=== PATIENT | male | born 1955 | race Caucasian/White ===

== ENCOUNTER 2019-04-23 06:15 | Day surgery (SDC) | payer MEDICARE ==
[2019-04-23] MEDS ORDERED: Acetaminophen/Codeine 300-30 MG Tab PO ONE ×2 (07:08→10:48)
[2019-04-23] MEDS ORDERED: diphenhydrAMINE 25 MG Cap PO ONE (07:08)
[2019-04-23] MEDS ORDERED: Hydrocortisone 1% Crm 30 GM Tube TOP ONE (07:10)
--- NOTE | 2019-04-23 07:26 | EDM.PDOC ---
ED HPI GENERAL MEDICAL PROBLEM - General Chief Complaint: IV Access Related Stated Complaint: MED[facility] Time Seen by Provider: 04/23/19 07:00 Source of Information: Reports: Patient, RN Notes Reviewed History Limitations: Reports: No Limitations - History of Present Illness INITIAL COMMENTS - FREE TEXT/NARRATIVE: 63-year-old male who resides in a local residential, has a PICC line in his right arm receiving IV vancomycin and meropenem for osteomyelitis and sacral ulcers. The PICC line site is pruritic and bothersome, he scratches it on a regular basis and this morning when they were preparing to give him his antibiotic they realized the PICC line has been pulled out approximately 6 inches. They sent him into the emergency room. He is otherwise stable, he is complaining of some mild to moderate discomfort and is asking for Tylenol 3 and an oral Benadryl. Reviewing his records reveals he is going to receive IV antibiotics until at least the end of May. No fevers or chills, denies nausea or vomiting. Onset: Unknown/Unsure (The pruritus in the right arm is chronic, the displacement of the PICC line happened overnight) Location: Reports: Upper Extremity, Right Associated Symptoms: Reports: Weakness (Generalized, chronic). Denies: Chest Pain, Cough, Nausea/Vomiting - Related Data Allergies Allergy/AdvReac Type Severity Reaction Status Date / Time lorazepam [From Ativan] Allergy Other Verified 04/23/19 06:34 metronidazole [From Flagyl] Allergy Other Verified 04/23/19 06:34 procaine Allergy Other Verified 04/23/19 06:34 Home Meds: Home Meds Acetaminophen with Codeine [Acetaminophen-Cod #3] 1 tab PO Q8H PRN 04/23/19 [ History] Calcium Carbonate [Calcium] 500 mg PO TID PRN 04/23/19 [History] Diazepam [Valium] 2.5 mg PO ASDIRECTED PRN 04/23/19 [History] Meropenem [Merrem] 2 g IV TID 04/23/19 [History] Sennosides/Docusate Sodium [Senna Plus Tablet] 2 tab PO ASDIRECTED PRN 04/23/19 [History] Vancomycin HCl in Water [Vancomycin 1,750 mg/17.5 ml Vl] 1,750 mg IV DAILY 04/23 [History] diphenhydrAMINE [Benadryl] 25 mg PO Q6H PRN 04/23/19 [History] Past Medical History Cardiovascular History: Reports: Hypertension Gastrointestinal History: Reports: Chronic Constipation, Other (See Below) Other Gastrointestinal History: Neurogenic bowel Genitourinary History: Reports: Other (See Below) Other Genitourinary History: Neurogenic bladder Musculoskeletal History: Reports: Other (See Below) Other Musculoskeletal History: Osteomyelitis of vertebra lumbar region Neurological History: Reports: Neuropathy, Peripheral, Other (See Below) Other Neuro History: T7-T10 injury of thoracic spinal cord. Paraplegia Hematologic History: Reports: Anemia Dermatologic History: Reports: Other (See Below) Other Dermatologic History: Pressure ulcer right buttox stage 4. pressure ulcer sacral area stage 4. pressure ulcer left ankle stage 3 Social & Family History - Tobacco Use Smoking Status *Q: Never Smoker - Recreational Drug Use Recreational Drug Use: No ED ROS GENERAL - Review of Systems Review Of Systems: See Below Constitutional: Denies: Fever, Chills Respiratory: Denies: Shortness of Breath Cardiovascular: Denies: Chest Pain GI/Abdominal: Denies: Abdominal Pain, Nausea, Vomiting Neurological: Denies: Headache ED EXAM, GENERAL - Physical Exam Exam: See Below Exam Limited By: No Limitations General Appearance: Alert, No Apparent Distress Head: Atraumatic Respiratory/Chest: Lungs Clear Cardiovascular: Regular Rate, Rhythm Extremities: Other (Exam is otherwise limited to the right extremity. The PICC line is pulled out about 7 cm, and the surrounding skin is irritated, erythematous in places and the epidermis is scratched off in the antecubital area and is moist but not purulent, does not appear to be infected) Course - Vital Signs Last Recorded V/S: Last Vital Signs Temp 95.5 F 04/23/19 06:40 Pulse 63 04/23/19 06:40 Resp 16 04/23/19 06:40 BP 181/108 H 04/23/19 06:40 Pulse Ox 100 04/23/19 06:40 - Orders/Labs/Meds Orders: Active Orders 24 hr Category Date Time Status Urinary Catheter Assessment [RC] ASDIRECTED Care 04/23/19 08:46 Active Urinary Catheter Insertion [Insert Urinary Catheter] [ Care 04/23/19 09:00 Ordered OM.PC] Q24H Meds: Medications Discontinued Medications Generic Name Dose Route Start Last Admin Trade Name Freq PRN Reason Stop Dose Admin Acetaminophen/Codeine Phosphate 1 tab 04/23/19 07:08 04/23/19 07:15 Tylenol With Codeine No.3 300mg/30mg PO 04/23/19 07:09 1 tab ONETIME ONE Administration Diphenhydramine HCl 25 mg 04/23/19 07:08 04/23/19 07:15 Benadryl PO 04/23/19 07:09 25 mg ONETIME ONE Administration Hydrocortisone 1 gm 04/23/19 07:10 04/23/19 07:16 Hydrocortisone 1% Crm [facility] 04/23/19 07:11 1 applic ONETIME ONE Administration Sodium Chloride 1,000 mls @ 150 mls/hr 04/23/19 08:45 04/23/19 08:45 Normal Saline IV 150 mls/hr ASDIRECTED DIEUDONNE Administration Meropenem 2 gm/ Sodium 100 mls @ 200 mls/hr 04/23/19 08:45 04/23/19 09:01 Chloride IV 04/23/19 09:14 200 mls/hr ONETIME ONE Administration Vancomycin HCl 1.75 gm/ Sodium 250 mls @ 250 mls/hr 04/23/19 09:00 Chloride IV 04/23/19 09:59 ONETIME ONE - Re-Assessments/Exams Free Text/Narrative Re-Assessment/Exam: 04/23/19 07:25 The PICC line will be removed, the patient was given 1 Tylenol 3, 1 oral Benadryl and topical hydrocortisone placed on the antecubital area. As a temporary measure a new PICC line will be placed in the left arm later this morning, but this patient should be considered for port placement and this was discussed with Dr. John and he asked to be consulted at that time. Dr. Clemens, the patient's primary physician was unable to be contacted. 04/23/19 08:24 A peripheral IV was started and the patient was given 2 g of meropenem, 1750 mg of vancomycin, and was sent over to ACU for replacement of the PICC line, preferably in the left arm. Departure - Departure Time of Disposition: 09:39 Disposition: DC/Tfer to [facility] Clinical Impression: PIC line (peripherally inserted central catheter) removal, Dermatitis - Discharge Information Referrals: PCP,None [Primary Care Provider] - Forms: ED Department Discharge Care Plan Goals: Patient will be transferred to ACU to complete IV antibiotics, have a new PICC line placed, then discharge back to his residence at the residential and further consideration should be had for a port placement especially if complications arise with the new PICC line. Sepsis Event Note - Evaluation Sepsis Screening Result: No Definite Risk - Focused Exam Vital Signs: Vital Signs Temp Pulse Resp BP Pulse Ox 04/23/19 06:40 95.5 F 63 16 181/108 H 100 04/23/19 06:37 95.5 F 63 16 181/108 H 100 Date Exam was Performed: 04/23/19 Time Exam was Performed: 09:40 - My Orders Last 24 Hours: My Active Orders 04/23/19 08:46 Urinary Catheter Assessment [RC] ASDIRECTED 04/23/19 09:00 Urinary Catheter Insertion [Insert Urinary Catheter] [OM.PC] Q24H - Assessment/Plan Last 24 Hours: My Active Orders 04/23/19 08:46 Urinary Catheter Assessment [RC] ASDIRECTED 04/23/19 09:00 Urinary Catheter Insertion [Insert Urinary Catheter] [OM.PC] Q24H
[2019-04-23] MEDS ORDERED: Meropenem 2 GM in Sodium Chloride 0.9% 100 ML IV ONE (08:45)
[2019-04-23] MEDS ORDERED: Sodium Chloride 0.9% 1,000 ML IV SCH (08:45)
[2019-04-23] MEDS ORDERED: Bupivacaine 0.5% 50 ML MDV ONE (11:47)
[2019-04-23] MEDS ORDERED: Lidocaine 1% with EPINEPHrine 1:100,000 50 ML MDV ONE (11:47)
[2019-04-23] MEDS ORDERED: fentaNYL 100 MCG/2 ML SDV ONE (12:09)
[2019-04-23] MEDS ORDERED: Propofol 200 MG/20 ML SDV ONE (12:13)
[2019-04-23] MEDS ORDERED: SODIUM CHLORIDE 0.9% IV ONE (14:06)
[2019-04-23] MEDS ORDERED: MEROPENEM IV ONE (14:06)
--- NOTE | 2019-04-24 09:33 | OR ---
DATE OF PROCEDURE: 04/23/2019 SURGEON: Forest Emanuel MD PREOPERATIVE DIAGNOSIS: Indication for central venous access. POSTOPERATIVE DIAGNOSIS: Indication for central venous access. OPERATIVE PROCEDURE: Placement of double-lumen Walker catheter via right subclavian vein approach (45662). ANESTHESIA: Local plus IV sedation. INDICATION FOR PROCEDURE: This is a 63-year-old being treated for osteomyelitis per the [facility] Infectious Disease Department. He did have a PICC line, which came out, and the Infectious Disease Department at the [facility] recommended placement of a cuffed Walker catheter. This will be placed. Potential risks including bleeding, infection, dislodgement of the catheter, problems with the catheter becoming infected or occluded, as well as possible vascular or pulmonary injuries during the placement were all reviewed with the patient, and he wishes to proceed. DETAILS OF PROCEDURE: The patient was taken to the operating room and placed in a supine position. IV sedation was administered, after which, the upper chest and neck areas were prepped and draped. Initially, the left subclavian area was anesthetized with 1% lidocaine. The subclavian vein could be entered quite easily. After several attempts, it became evident that the wire would not pass beyond the area of the innominate subclavian and jugular junction. Attention was then taken to the right side, which was similarly anesthetized on the right side with the subclavian vein, which was cannulated, and the wire had been easily manipulated from there into the superior vena cava. Some additional local was injected from the initial puncture site, as roughly handsbreadth inferiorly along the chest wall, and Walker catheter was then tunneled between those 2 points after making incisions at both locations. The catheter was cut such that the tip would lie in the area of right atrial vena cava junction and was placed via the peel-away catheter without difficulty. Good in and outflow was noted through both ports, which were once again flushed with heparinized saline. The original skin puncture site was closed with a 4-0 Vicryl subdermal stitch and Steri-Strips. The catheter was sutured at the skin level with 3-0 nylon stitch. Dressing was applied. The patient was taken to the recovery room in satisfactory condition. There were no evident complications. Forest Emanuel MD /[id number]
== END 2019-04-23 15:35 ==
LOC: JP.ED 06:15 → JP.SDS 09:36 → JP.ED 09:39 → JP.SDS 15:35
PROVIDERS: ATTEND Surgery
DX: M46.26 Osteomyelitis of vertebra, lumbar region (principal); L89.314 Pressure ulcer of right buttock, stage 4; L89.154 Pressure ulcer of sacral region, stage 4; L89.523 Pressure ulcer of left ankle, stage 3; L30.9 Dermatitis, unspecified; I10 Essential (primary) hypertension; Z88.8 Allergy status to other drugs, medicaments and biological substances; Z88.1 Allergy status to other antibiotic agents; Z88.0 Allergy status to penicillin
CPT/HCPCS: 51701; A9270-GY; J1642; J2185; J2704; J3010; J3370; J3490; J7030; J7050

== ENCOUNTER 2019-08-17 13:48 | Observation (INO) | payer MEDICARE, BC ==
--- NOTE | 2019-08-17 14:17 | EDM.PDOC ---
ED HPI GENERAL MEDICAL PROBLEM - General Chief Complaint: General Time Seen by Provider: 08/17/19 14:10 Source of Information: Reports: Patient, RN Notes Reviewed History Limitations: Reports: No Limitations - History of Present Illness INITIAL COMMENTS - FREE TEXT/NARRATIVE: 63-year-old gentleman presents emergency department today with complication to his Walker catheter, a portion of the catheter has broken off outside where it is placed he has this for chronic infection of osteomyelitis - Related Data Allergies Allergy/AdvReac Type Severity Reaction Status Date / Time lorazepam [From Ativan] Allergy Other Verified 04/23/19 06:34 metronidazole [From Flagyl] Allergy Other Verified 04/23/19 06:34 procaine Allergy Other Verified 04/23/19 06:34 Home Meds: Home Meds Acetaminophen with Codeine [Acetaminophen-Cod #3] 1 tab PO Q8H PRN 04/23/19 [ History] Calcium Carbonate [Calcium] 500 mg PO TID PRN 04/23/19 [History] Meropenem [Merrem] 2 g IV TID 04/23/19 [History] Sennosides/Docusate Sodium [Senna Plus Tablet] 2 tab PO ASDIRECTED PRN 04/23/19 [History] diazePAM [Valium] 2.5 mg PO ASDIRECTED PRN 04/23/19 [History] diphenhydrAMINE [Benadryl] 25 mg PO Q6H PRN 04/23/19 [History] vancomycin HCL in water [Vancomycin 1,750 mg/17.5 ml Vl] 1,750 mg IV DAILY 04/23 [History] Past Medical History Cardiovascular History: Reports: Hypertension Gastrointestinal History: Reports: Chronic Constipation, Other (See Below) Other Gastrointestinal History: Neurogenic bowel Genitourinary History: Reports: Other (See Below) Other Genitourinary History: Neurogenic bladder Musculoskeletal History: Reports: Other (See Below) Other Musculoskeletal History: Osteomyelitis of vertebra lumbar region Neurological History: Reports: Neuropathy, Peripheral, Other (See Below) Other Neuro History: T7-T10 injury of thoracic spinal cord. Paraplegia Hematologic History: Reports: Anemia Dermatologic History: Reports: Other (See Below) Other Dermatologic History: Pressure ulcer right buttox stage 4. pressure ulcer sacral area stage 4. pressure ulcer left ankle stage 3 - Infectious Disease History Infectious Disease History: Reports: Chicken Pox Social & Family History - Tobacco Use Smoking Status *Q: Never Smoker - Caffeine Use Caffeine Use: Reports: Coffee - Recreational Drug Use Recreational Drug Use: No ED ROS GENERAL - Review of Systems Review Of Systems: See Below Constitutional: Reports: No Symptoms Cardiovascular: Reports: Other (Walker catheter broken) ED EXAM, GENERAL - Physical Exam Exam: See Below Free Text/Narrative:: Examination Walker catheter the insertion site is clean dry and intact however the red tip of the Walker catheter has broken off Exam Limited By: No Limitations General Appearance: Alert, WD/WN, No Apparent Distress Course - Vital Signs Last Recorded V/S: Last Vital Signs Temp 97.0 F 08/17/19 14:00 Pulse 89 08/17/19 14:00 Resp 16 08/17/19 14:00 BP 152/101 H 08/17/19 14:00 Pulse Ox 100 08/17/19 14:00 Departure - Departure Time of Disposition: 16:13 Disposition: Admitted As Inpatient 66 Condition: Fair Clinical Impression: Walker catheter dysfunction Qualifiers: Encounter type: initial encounter Qualified Code(s): T82.514A - Breakdown ( mechanical) of infusion catheter, initial encounter - Discharge Information Referrals: PCP,None [Primary Care Provider] - Forms: ED Department Discharge Sepsis Event Note - Evaluation Sepsis Screening Result: No Definite Risk - Focused Exam Vital Signs: Vital Signs Temp Pulse Resp BP Pulse Ox 08/17/19 14:00 97.0 F 89 16 152/101 H 100 08/17/19 13:52 97.0 F 89 16 152/101 H 100 Date Exam was Performed: 08/17/19 Time Exam was Performed: 16:12 - Assessment/Plan Plan: Assessment Acuity = acute Site and laterality = broken Walker catheter Etiology = unknown Manifestations = none Location of injury = Home Lab values = none Plan Call discussed case Dr. Emanuel at 1510 he agreed to replace the catheter in the morning because of this gentleman's distance from hospital elected to admit him overnight do the surgical procedure at that time he will be n.p.o. at midnight the blue portion of the catheter is still functional we will continue to use this to provide his antibiotics This note was dictated using Octamer voice recognition software please call with any questions on syntax or grammar.
[2019-08-17] MEDS ORDERED: Sodium Chloride 0.9% 10 ML Syringe FLUSH PRN (16:15)
[2019-08-17] MEDS ORDERED: Diazepam 5 MG Tab PO PRN (16:19)
[2019-08-17] MEDS ORDERED: Calcium Carbonate 500 MG Tab.Chew PO PRN (16:19)
[2019-08-17] MEDS ORDERED: diphenhydrAMINE 25 MG Cap PO PRN (16:19)
[2019-08-17] MEDS ORDERED: Acetaminophen/Codeine 300-30 MG Tab PO PRN (16:19)
[2019-08-17] MEDS: Meropenem 2 GM in Sodium Chloride 0.9% 100 ML IV SCH (20:58)
[2019-08-17] MEDS ORDERED: Meropenem 1 GM SDV IV SCH (21:00)
[2019-08-18] MEDS: Meropenem 2 GM in Sodium Chloride 0.9% 100 ML IV SCH ×2 (03:47→12:04)
[2019-08-18] MEDS ORDERED: Propofol 200 MG/20 ML SDV ONE ×2 (07:47→10:58)
[2019-08-18] MEDS ORDERED: Midazolam 1 MG/ML 2 ML SDV ONE (07:48)
[2019-08-18] MEDS ORDERED: fentaNYL 100 MCG/2 ML SDV ONE (07:48)
[2019-08-18] MEDS ORDERED: Bupivacaine 0.5% 50 ML MDV ONE (09:22)
[2019-08-18] MEDS ORDERED: Lidocaine 1% with EPINEPHrine 1:100,000 50 ML MDV ONE (09:22)
--- NOTE | 2019-08-19 15:22 | OR ---
DATE OF PROCEDURE: 08/18/2019 SURGEON: Forest Emanuel MD PREOPERATIVE DIAGNOSIS: Fractured right-sided Walker catheter. POSTOPERATIVE DIAGNOSIS: Fractured right-sided Walker catheter. OPERATIVE PROCEDURE: 1. Placement of new double-lumen Walker catheter via left subclavian vein approach (24366). 2. Removal of fractured Walker catheter, right subclavian site (20870). ANESTHESIA: Local plus IV sedation. INDICATION FOR PROCEDURE: This is a 63-year-old paraplegic who has osteomyelitis in the hip area, receiving IV antibiotics at home via Walker catheter, who presented yesterday with Walker catheter in the right subclavian area having been fractured, and this is to be replaced. Repair of this catheter and being open for now almost 24 hours would put the patient at significant risk for this becoming infected. Given this, plan will be to proceed with a fresh Walker catheter in the left subclavian area and removal of the right- sided Walker catheter. Potential risks including bleeding, infection, pneumohemothorax, injury to the vasculature were all reviewed, and the patient wishes to proceed. DETAILS OF PROCEDURE: The patient was taken to the operating room and placed in a supine position. IV sedation was administered, after which the upper chest and neck areas were prepped and draped. The left side at this point was kept separate from the right, so as to maintain sterility. The left subclavian area was anesthetized with 1% lidocaine mixed with Marcaine. The left subclavian vein was then cannulated. Guidewire was passed into the subclavian vein, and from there, manipulated with fluoroscopic assistance into the superior vena cava. Some additional local was injected in the left chest wall, and Walker catheter tunneled between a lower incision roughly a handsbreadth below the original puncture site. The catheter was cut such that the tip would lie in the area of the superior vena cava/right atrial junction and was passed over recent peel-away catheter without difficulty. Good blood return was noted, and ports were flushed with heparinized saline. The external side of the catheter was sutured at the skin level with 3-0 nylon stitch, the puncture site closed with a 4-0 Vicryl subcuticular stitch, and Steri-Strips applied. A sterile dressing was then placed over this area. Attention was taken to the right side area. The area was anesthetized with 1% lidocaine mixed with Marcaine where the catheter came out, and a small incision was made, the fibrous catheter freed up from the scar, and the catheter removed intact without difficulty. Dressing was applied. The patient was taken to the recovery room in satisfactory condition. Forest Emanuel MD /[id number] MTDD
--- NOTE | 2019-09-28 13:34 | DISCH ---
FINAL DIAGNOSIS: Fractured Walker catheter. OPERATIVE PROCEDURE: This was done on 08/18/2019, placement of new double-lumen Walker catheter via left subclavian vein approach along with removal of fractured Walker catheter in the right subclavian site. SUMMARY: This is a 63-year-old paraplegic with osteomyelitis in the hip area, receiving home IV antibiotics via the Walker catheter, presented to the emergency room yesterday with a fractured Walker catheter. He was admitted overnight due to the patient having no significant support or ability to move back and forth from his home, and the above procedure was undertaken on 08/18/2019. Following this, the patient was discharged home and will continue with local care, and home care will be instructed to remove the sutures in roughly 10 days at the new Walker catheter site.
== END 2019-08-18 15:39 | disposition home health service (06) ==
LOC: JP.ED 13:48 → JP.ICU 16:16
PROVIDERS: ADMIT Surgery; ATTEND Surgery
DX: T82.514A Breakdown (mechanical) of infusion catheter, initial encounter (principal); M86.68 Other chronic osteomyelitis, other site; I10 Essential (primary) hypertension; Z88.8 Allergy status to other drugs, medicaments and biological substances; Z79.899 Other long term (current) drug therapy
CPT/HCPCS: 36415; 36558; 36589; 51701; 80202; 96365; 96366; 99283; 99285; A9270; G0378; J1642; J2185; J2250; J2704; J3010; J3370; J3490; J7050